=== PATIENT | male | born 1980 | race Caucasian/White ===

== ENCOUNTER → 2016-11-07 | Outpatient (CLI) | payer OTHER ==
--- NOTE | 2016-11-07 12:23 | KCIC ---
PROCEDURE MRI right knee without contrast dated 11/07/2016. HISTORY Right knee pain and popping for 10 days. TECHNIQUE Routine multiplanar multisequence MR imaging performed. COMPARISON None. FINDINGS Bone marrow signal is homogeneous. No marrow edema. Mild tricompartmental hypertrophic changes. Articular cartilage is intact. No osteochondral defect. Small joint effusion. No significant popliteal cyst. No intra-articular loose body. Anterior cruciate and posterior cruciate ligaments are intact. Medial and lateral collateral complexes are intact. Iliotibial band, popliteus tendon and pes anserine complex within normal limits. Quadriceps and patellar tendon are intact. No abnormality of the medial or lateral retinaculum. There are some prominent venous varicosities over the anterior medial patella. There is a focal radial tear at the medial meniscal root. Globular increased signal at the medial meniscal body without articular surface component. The anterior horn is intact. Lateral meniscus normal in morphology and signal. IMPRESSION - Radial tear at the medial meniscal root. - Mild tricompartmental degenerative arthrosis. - Small joint effusion. Electronically signed by: Lalito Steele (Nov 07, 2016 12:21:25)
== END | disposition home or self-care (01) ==
LOC: KCIC MRI 11:10
PROVIDERS: ATTEND Nurse Practitioner Gerontology
DX: S83.241A Other tear of medial meniscus, current injury, right knee, initial encounter (principal); M17.11 Unilateral primary osteoarthritis, right knee; M25.461 Effusion, right knee; I83.91 Asymptomatic varicose veins of right lower extremity; X58.XXXA Exposure to other specified factors, initial encounter; Y93.89 Activity, other specified; Y92.89 Other specified places as the place of occurrence of the external cause; Y99.8 Other external cause status
CPT/HCPCS: 73721

== ENCOUNTER 2016-11-28 06:40 | Day surgery (SDC) | payer OTHER ==
[~2016-11-28] VITALS: Ht 190.5 cm; Wt 112.0 kg
[~2016-11-28 06:40] MED LIST: BUPIVACAINE MPF 0.5% 30 ML VIAL. ONE; EPINEPHrine VIAL 30 MG/30 ML VIAL ONE; LIDOCAINE 1% 20 ML VIAL. ONE; MULT1TAB52 PO; NAPR500T3 PO
[2016-11-28] MEDS ORDERED: IV RINGERS,LACTATED 1000ML 1,000 ML IV SCH (07:00)
[2016-11-28] MEDS ORDERED: MORPHINE SULFATE 2 MG/ML DISP.SYRIN. IV PRN (07:00)
[2016-11-28] MEDS ORDERED: fentaNYL PF VIAL 100 MCG/2 ML VIAL IV PRN (07:00)
[2016-11-28] MEDS ORDERED: LIDOCAINE 1% 1 ML SYRINGE. ID PRN (07:00)
[2016-11-28] MEDS ORDERED: HYDROmorphone 2 MG/ML VIAL IV PRN (07:00)
[2016-11-28] MEDS ORDERED: ONDANSETRON PF 4 MG/2 ML VIAL. IV PRN (07:00)
[2016-11-28] MEDS ORDERED: PROCHLORPERAZINE 10 MG/2 ML VIAL. IV PRN (07:00)
[2016-11-28] MEDS ORDERED: LIDOCAINE 2% 100 MG/5 ML SYRINGE. ONE (07:14)
[2016-11-28] MEDS ORDERED: DEXAMETHASONE SOD PHOS 20 MG/5 ML VIAL. ONE (07:14)
[2016-11-28] MEDS ORDERED: ONDANSETRON PF 4 MG/2 ML VIAL. ONE (07:14)
[2016-11-28] MEDS ORDERED: FAMOTIDINE 20 MG/2 ML VIAL ONE (07:14)
[2016-11-28] MEDS ORDERED: PROPOFOL 20 ML IV ONE (07:14)
[2016-11-28] MEDS ORDERED: MIDAZOLAM HCL/PF 2 MG/2 ML VIAL. ONE (07:16)
[2016-11-28] MEDS ORDERED: fentaNYL PF VIAL 100 MCG/2 ML VIAL ONE (07:16)
[2016-11-28] MEDS ORDERED: KETOROLAC 60 MG/2 ML INJ FOR OR. ONE (07:17)
--- NOTE | 2016-11-28 07:35 | DISCH ---
DISCHARGE INSTRUCTIONS Condition on Discharge Condition on Discharge: Stable Activity After Discharge Activity Instructions for Disc: Other, see below Other activity instructions: remain in brace, except for showering. Weight Bearing Status after Di: Non weight bearing Diet after Discharge Diet after Discharge: Regular Wound Incision Care Wound/Incision Care: Ice to area for comfort, Keep wound/cast CDI, Change dressing Contacting the DRFan after DC Call your doctor for: Concerns you may have Follow-Up Follow up with: Micki or Boyd in 2wks Treatment/Equipment after DC Adaptive Equipment Issued: None AMDDI KITCHEN II, MD November 28, 2016 07:35
--- NOTE | 2016-11-28 07:36 | PDOC ---
BRIEF OPERATIVE NOTE Date: November 28, 2016 Pre-Op Diagnosis R medial meniscal root tear Post-Op Diagnosis same, cartilage flap MFC Procedure Performed R knee arthroscopic debridement of meniscus root, chrondroplasty Surgeon Boyd Castillo Anesthesia Type: General Blood Loss 10mL Complications none MADDI KITCHEN II, MD November 28, 2016 07:36
[2016-11-28] MEDS ORDERED: ePHEDrine PF IN SALINE 50 MG/5 ML DISP.SYRIN IV ONE (07:57)
[2016-11-28] MEDS ORDERED: GLYCOPYRROLATE 1 MG/5 ML VIAL. ONE (08:06)
--- NOTE | 2016-11-28 09:06 | ACF ---
Admission Forms Criteria AMBULATORY SURGERY EXCEPTION CRITERIA Ambulatory Surgery Exception Criteria ( Place 'X' for any and all applicable criteria): Surgery or procedure performed on ambulatory basis may require inpatient stay for[A] ANY ONE of the following(1)(2)(3)(4)(5)(6)(7)(8)(9): [] I. A preoperative situation, condition, or finding that warrants inpatient stay as indicated by ANY ONE of the following: [] a) Inpatient care needed because of severity of a disease or condition rather than the surgery (eg, severe cardiac or respiratory disease, severe infection) (15) (16 ) (17) (18) [] b) Emergent procedure (eg, angioplasty for acute ischemia)(19) [] c) Complex surgical approach or situation as indicated by ANY ONE of the following(3): [] i) Open approach needed instead of usual endoscopic, transcatheter, or other less invasive procedure [] ii) Difficult approach because of previous operation [] iii) Airway monitoring required after open neck procedures(20)(21 ) [] iv) Large mass requiring unusually extensive dissection [] v) Additional complicating feature requiring inpatient care (eg , drain management)(22(23): [] d) Major surgery in a pt with high anesthetic risk as indicated by ANY ONE of the following (2)(3)(5)(7)(8): [] i) ASA risk class III or higher (severe systemic disease impairing function) [D] [] ii) Advanced age (eg, older than 85 years)(14)(24) [] iii) Symptomatic heart failure(25) [] iv) Symptomatic asthma or COPD(8)(21) [] v) Morbid obesity with hemodynamic or respiratory problems(20)( 21)(26)(27) [] vi) Obstructive sleep apnea(20)(21) [] vii) Former premature infants who are younger than 60 weeks [] viii) High risk for severe postoperative abnormalities (eg, severe postoperative hypocalcemia after parathyroidectomy for severe hyperparathyroidism)(27)( 28) [] ix) Unstable angina(25) [] e) Drug-related risk requiring inpatient stay as indicated by ANY ONE of the following(5)(10)(14)(32)(33) [] i) Procedure requires discontinuing drugs or other therapy (eg , antiarrhythmic medication, antiseizure medication), which necessitates inpatient observation or treatment.(18)(31) [] ii) Major surgery and high risk drug use as indicated by ANY ONE of the following: [] 1) Active abuse of cocaine or similar drug [] 2) Monoamine oxidase inhibitor use [] 3) Other drug identified as posing risk [] f) Inadequate outpatient care situation as indicated by ANY ONE of the following(5)(10)(14)(32)(33) [] i) Patient lives remote from medical facility and procedure has urgent complication potential, and temporary nearby residence cannot be arranged [] ii) Patient will have postprocedure incapacitation and inadequate assistance at home, or alternative level of care cannot be arranged. [] iii) Patient will have long general anesthesia or procedure side effect resolution time, and competent person to stay with patient on first postoperative night at home or alternative level of care cannot be arranged. [] iv) Other inadequate outpatient situation that cannot be handled by other means [X] II. A perioperative event, condition, or finding that warrants inpatient stay as indicated by ANY ONE of the following (1)(2)(3): [] a) Inadequate physiologic recovery: cardiovascular, respiratory, or hemodynamic status not normal or near preoperative baseline(18) [] b) Hemodynamic instability [] c) Patient not alert with near normal or baseline mental status [] d) Temperature not normal or as expected and not appropriate for outpatient treatment of condition [] e) Ambulatory or appropriate activity level status not yet achieved post procedure [E](34)(35)(36) [] f) Operative site not appropriate (eg, unexpected or excessive drainage or bleeding) [X] g) Postoperative effects not resolved or adequately managed (eg, significant pain or vomiting not appropriate for outpatient or next level of care)(10)(12) [] h) Complicating features requiring inpatient care as indicated by ANY ONE of the following(37): [] i) Severe complications of procedure (eg, bowel injury, airway compromise, vascular injury,severe hemorrhage) [] ii) Extensive (eg, dissection far beyond usual scope of procedure ) or prolonged (eg, 120 minutes beyond usual) surgery needed requiring inpatient postoperative care [] iii) Conversion to an open or complex procedure that requires inpatient care (eg, open vs laparoscopic cholecystectomy, abdominal vs vaginal hysterectomy)(38) [] iv) Comorbid condition or test result identified during or post procedure that requires inpatient care (7) [] v) Malignant hyperthermia(30) [] vi) Other complicating feature requiring inpatient care(22)(23) Inpatient stay may be needed until ALL of the following are present (1)(2)(3)(4) (5)(6)(10)(14)(33)(40): []a) Physiologic recovery: cardiovascular, respiratory, and hemodynamic status normal or near preoperative baseline []b) Hemodynamic stability []c) Patient alert, with near normal or baseline mental status []d) Temperature appropriate: patient afebrile or temperature appropriate for outpt treatment of condition []e) Activity level appropriate: ambulatory or appropriate activity level post procedure []f) Operative site appropriate as indicated by ALL of the following: []i) Site dry or with expected drainage []ii) Any blood noted is as expected for procedure. []g) Postoperative effects resolved or managed as indicated by ALL of the following: []i) Pain management appropriate for outpatient (or next level of) care(10) []ii) Minimal nausea and vomiting: if present, successfully treated with oral medication(12) []iii) Headache, dizziness, or drowsiness (if present) are mild. []h) Voiding status acceptable as indicated by ANY ONE of the following: []i) Voiding spontaneously []ii) No voiding but instructions given for follow-up in 6 to 8 hours []iii) Urinary catheter in place, and instructions given for follow-up []i) Complicating features requiring inpatient care manageable at a lower level of care(37) []j) Comorbid conditions manageable at a lower level of care(37) The original [employer] content created by [employer] has been revised. The portions of the content which have been revised are identified through the use of italic text or in bold, and [facility] has neither reviewed nor approved the modified material. All other unmodified content is copyright [employer]. Please see references footnoted in the original [facility] edition 2016 Admission Criteria Met?: Yes SIOMARA MENDOZA November 28, 2016 09:05 MADDI KITCHEN II, MD November 29, 2016 14:03
[2016-11-28] MEDS: fentaNYL PF VIAL 100 MCG/2 ML VIAL IV PRN ×4 (09:24→10:12)
[2016-11-28] MEDS ORDERED: OXYCODONE/APAP 5/325 TABLET. PO ONE (09:30)
[2016-11-28] MEDS ORDERED: OXYC-323 PO (09:30)
[2016-11-28] MEDS ORDERED: DOCU-27 PO (09:31)
[2016-11-28] MEDS ORDERED: ONDA4TAB10 SL (09:31)
[2016-11-28 11:15] VITALS: BP 133/68
--- NOTE | 2016-11-28 11:59 | OP ---
DATE OF SURGERY: 11/28/2016 SURGEON: Manjit Kitchen M.D. BARN AND PROPERTY MANAGER: Fili Castillo. ANESTHESIA: General. PREOPERATIVE DIAGNOSIS: 1. Right knee medial meniscal tear. POSTOPERATIVE DIAGNOSES: 1. Right knee partial medial meniscal tear. 2. Partial thickness cartilage lesion measuring 3 x 8 mm at the medial femoral condyle at about 45 of flexion with loose cartilage flaps. PROCEDURES PERFORMED: 1. Arthroscopic medial meniscal root debridement. 2. Arthroscopic chondroplasty. FINDINGS: 1. The patient had grade 2-3 changes at his trochlea. 2. Intact patellar cartilage. 3. He had the medial meniscal lesion as noted above. 4. Intact medial tibial plateau cartilage. 5. Intact cruciate ligaments. 6. Lateral compartments showed fissures and grade 2-3 changes at the tibial plateau without any lesions at the lateral femoral condyle. 7. Lateral meniscus was without pathology and stable to probing. REASON FOR PROCEDURE: The patient is a very pleasant gentleman who presented to my nurse practitioner with complaints of painful catching and medial knee pain, worse with activity and twisting. We had obtained an MRI, which revealed the meniscal root pathology and because of his age and the MRI findings, I have recommended we proceed with surgery likely in the form of a meniscus repair. I discussed the rehab and risks, benefits, alternatives with him and he elected to proceed. DESCRIPTION OF PROCEDURE: The patient was greeted in the preoperative area by myself. Correct extremity was marked and verified. He was taken to the operative suite and antibiotics were started en route. Once in the OR, he was transferred gently supine to the OR bed and secured to the bed after successful induction of general anesthesia using an LMA. We then placed a nonsterile tourniquet to his right thigh. We then attached our bump under the hip and the foot plate to maintain his knee at 90 degrees. We then proceeded to prep and drape right lower extremity in our usual sterile fashion and I conducted a standard preoperative timeout. I then palpated, marked surface anatomy and made garcia for my anterolateral portal, anteromedial portal and for a medial open incision as well. After this, the extremity was exsanguinated and tourniquet insufflated to 300 mmHg. I then created my anterolateral portal in the usual fashion. I then introduced blunt arthroscopic trocar in suprapatellar pouch and conducted my diagnostic arthroscopy with the above-noted findings. I then used a spinal needle localizing the anteromedial portal and incised skin in accordance with this. I then inserted the probe and continued on with my diagnostic arthroscopy. I then addressed his cartilage lesion and with the loose flaps were carefully debrided with the shaver to stable edges. This was a partial-thickness lesion. He still had a layer of intact cartilage underneath the flap. I then directed my attention to the meniscus root and was having difficulty fully visualizing and appreciating it and therefore, replaced my scope in the anteromedial portal and then introduced the blunt arthroscopic trocar and advanced this in to the posterior aspect of the knee. I then inserted the 70 degree camera to visualize the posterior aspect of the knee and noted no meniscal capsular injury. I inspected its return and it was approximately 30% of his meniscus root attachment. I then used the spinal needle to localize posteromedial portal and incised skin in accordance with this and then, I followed this with the switching stick and dilated the hole. I then inserted my probe and continued on inspecting the tear and still felt there was about 30%. I made the decision that the repair would not offer in many real benefit and used combination of mainly arthroscopic biter, but a little shaver to debride the small loose flap of this tear. After trimming the posterior meniscus root back to stable edges and I then took my final pictures and withdrew the camera from the posterior aspect of the knee and reinserted into the suprapatellar pouch. I then performed repeat aspiration maneuvers while my assistant professor of business palpated vigorously behind the knee to ensure I had removed all loose debris. I then removed all excess arthroscopic fluid and the arthroscopic instrumentation. I then injected local anesthetic mixture into the sarah-incisional areas. We then cleansed and dried his leg and closed the skin with simple interrupted 2-0 nylon. A Xeroform sterile dressing, sterile cast padding, and John wrap were then applied to the patient's knee. Postop plan is to discharge him weightbearing as tolerated. We will have him follow up with myself and my nurse practitioner in 2 weeks, sooner should problems arise. MANJIT KITCHEN MD DR: CHRIS/presley JOB#: [id number] / [id number] MTDD
== END 2016-11-28 11:25 | disposition home or self-care (01) ==
LOC: SURG 06:40
PROVIDERS: ATTEND Orthopaedic Surgery Sports Medicine
DX: S83.241A Other tear of medial meniscus, current injury, right knee, initial encounter (principal); M94.8X6 Other specified disorders of cartilage, lower leg; X58.XXXA Exposure to other specified factors, initial encounter; Y93.9 Activity, unspecified; Y92.9 Unspecified place or not applicable; Y99.9 Unspecified external cause status; Z72.89 Other problems related to lifestyle; Z72.0 Tobacco use
CPT/HCPCS: 29882; J0171; J0690; J1100; J1885; J2250; J2405; J2704; J3010; J3490; S0028; C1782; J7120

== ENCOUNTER → 2017-01-05 | Outpatient (CLI) | payer OTHER ==
[~2017-01-05] MED LIST changes: -BUPIVACAINE MPF 0.5% 30 ML VIAL. ONE; +DOCU-27 PO; -EPINEPHrine VIAL 30 MG/30 ML VIAL ONE; -LIDOCAINE 1% 20 ML VIAL. ONE; +ONDA4TAB10 SL; +OXYC-323 PO
--- NOTE | 2017-01-06 10:24 | RAD ---
APPROVED REPORT Patient Location : OUT-PATIENT Indications Lower Extremity Pain : Bilateral Stasis Disease Lower Extremity Edema : Bilateral Restless Leg Varicose Veins Skin Changes Deep System Deep Venous Thrombosis present : No Deep Venous Reflux present : No Greater Saphenous Veins (GSV) Significant venous relux noted in the LEFT GSV at the following levels : Superficial Femoral Junction Accessory Veins Right Anterior Accessory Vein : Present : Yes Reflux : No Leftt Anterior Accessory Vein : Present : Yes Reflux : No Perforators Thigh Perforators Left: cm up from knee crease 25cm back from the anterior border of femur 17 diameter mm. Calf Perforators Right: cm up from medial heel 20cm back from the anterior border of tibia 10 diameter mm. Left: cm up from medial heel 10cm back from the anterior border of tibia 10 diameter mm. Findings On grayscale images of the right great saphenous vein there is no evidence of thrombus on limited harjinder ging. There is no evidence of reflux. The right great saphenous vein measures approximately 8.8 mm. T here is anterior accessory saphenous vein present and there is no evidence of reflux. The right lesse r saphenous vein also demonstrates no evidence of reflux. The left great saphenous vein measures 7.2 mm and shows reflux of greater than 2 seconds throughout i ts course. The left lesser saphenous vein does not demonstrate any evidence of reflux. There are multiple calf perforators noted on the left side as follows: 10 cm up and 10 cm back 26 7 m up in 7 cm back 33 7 m up and 10 cm back 40 cm up and Leven 7 m back 48 cm up and 12 some years back. 1 thigh perforators noted at 75 cm up and 17 cm back. There are 2 small right sided calf perforators noted at approximately 27 m up and 10 7 m back. Critical Notification Critical Value: No <Conclusion> 1. Positive for reflux in the left great saphenous vein with multiple left-sided perforators extendin g from the thigh to the calf. 2. Negative for reflux in the right lower extremity with isolated calf perforators as described above .
--- NOTE | 2017-01-06 11:27 | RAD ---
APPROVED REPORT Bilateral Lower Extremity Venous Study for DVT Patient Location: OUT-PATIENT Indications Lower Extremity Pain: Bilateral Varicose Veins Stasis Disease Risk Factors Trauma Post OP Smoking Findings Rose scale images of the bilateral lower extremity deep venous structures were performed to rule out thrombus. Bilaterally from the common femoral vein to the popliteal vein they are compressible. Spectral wavefo juanita and color Doppler do not show any evidence of thrombus. The below-knee veins are not well visualized but there is spontaneous flow noted. Critical Notification Critical Value: No <Conclusion> Negative for DVT in the bilateral lower extremity deep venous structures.
== END | disposition home or self-care (01) ==
LOC: US 08:36
PROVIDERS: ATTEND Internal Medicine Cardiovascular Disease
DX: I87.2 Venous insufficiency (chronic) (peripheral) (principal); R60.0 Localized edema
CPT/HCPCS: 93970

== ENCOUNTER → 2017-04-18 | Outpatient (CLI) | payer OTHER ==
[~2017-04-18] MED LIST changes: +DOCU-109 PO; -DOCU-27 PO; +LIDOCAINE 1%/EPI 1:100,000 50 ML, SODIUM BICARBONATE VIAL 5 MEQ in IV NORMAL SALINE 100... SQ ONE
--- NOTE | 2017-04-18 14:01 | CARD ---
APPROVED REPORT Patient StatusOUT-PATIENT Set Up Mechanic [employer] Machine: CLARISA CUTLER Procedure(s) performed: Endovenous radiofrequency ablation of the left greater saphenous vein. INDICATION FOR PROCEDURE The indication(s) include : Symptomatic Chronic Venous Insufficiency with Varicose Veins, lower extre mity pain and edema. PROCEDURE NARRATIVE The patient was transferred to the procedure suite and the insufficient saphenous vein was mapped by ultrasound and diagrammed on the underlying skin. The depth and diameter of the vein(s) to be treate d was documented. The varicose tributary veins and suitable access sites were identified and mapped as well. The patient was then positioned supine on the procedure table. The entire limb was sterile ly prepared and the lower extremity and treatment table were sterilely draped. The RF catheter was placed on the sterile field, flushed and wiped down, prepared, and connected by a sterile cable. The patient was placed in reverse-Trendelenburg position and local anesthesia was instilled in the sk in overlying the access site. A skin incision was made overlying the identified and mapped greater s aphenous vein entry site. The vein was punctured through the incision and using ultrasound guidance and the Seldinger technique a guide wire was introduced through the needle which was then exchanged o ted the guide wire for a 7 F sheath. The guide wire was removed and the sheath was flushed. The RF probe was placed into the vein through the sheath and positioned at a point just distal (about 0.5 to 1 cm) to the entrance point of the superficial epigastric artery using ultrasound guidance. After the RF probe position was verified by the ultrasound, tumescent anesthesia was infiltrated, und er ultrasound guidance, precisely into the perivenuus compartment along the entire length of vein fro m the entry site to the saphenofemoral junction until a "halo" of fluid was noted around the vein. The patient was then placed in Trendelenburg position. After the RF probe position was again confirm ed with ultrasound imaging, moderate external compression was applied over the RF heating element, an d RF energy was applied. The probe was withdrawn sequentially in 6.5 cm steps with slight overlap of 7 cm segments of ablation and monitored to keep the probe temperature at 120 degrees Celsius and the generator output well below its maximum power. Treatment Segments: 14 Total Length: 65 cm. Tot al Ablation time: 4 minutes 40 seconds. Repeat ultrasound of the saphenous vein was performed confirming successful treatment. The catheter and sheath were withdrawn and hemostasis established with direct pressure. After assuring hemostasis , the skin incision over the saphenous vein was closed with a bandage and an external compression brandon ssing was applied from the level of the foot to the most proximal level of the thigh.
== END | disposition home or self-care (01) ==
LOC: VNUS 12:28
PROVIDERS: ATTEND Internal Medicine Cardiovascular Disease
DX: I83.12 Varicose veins of left lower extremity with inflammation (principal); Z72.0 Tobacco use; Z87.39 Personal history of other diseases of the musculoskeletal system and connective tissue; Z72.89 Other problems related to lifestyle; F17.200 Nicotine dependence, unspecified, uncomplicated
CPT/HCPCS: 36475; J3490; J7030

== ENCOUNTER → 2017-04-20 | Outpatient (CLI) | payer OTHER ==
[~2017-04-20] MED LIST changes: -LIDOCAINE 1%/EPI 1:100,000 50 ML, SODIUM BICARBONATE VIAL 5 MEQ in IV NORMAL SALINE 100... SQ ONE
--- NOTE | 2017-04-20 16:04 | RAD ---
Left lower extremity venous ultrasound, 04/20/2017: History: follow-up greater saphenous vein ablation : Duplex evaluation including grayscale, color flow and spectral Doppler analysis was performed. The femoral and popliteal veins show no filling defects to suggest DVT. The visualized calf veins are unremarkable. Limited views of the greater saphenous vein demonstrate occlusion compatible with the history of an ablation procedure. IMPRESSION: There is no sonographic evidence of deep vein thrombosis in the left lower extremity
== END | disposition home or self-care (01) ==
LOC: US 10:40
PROVIDERS: ATTEND Internal Medicine Cardiovascular Disease
DX: Z98.890 Other specified postprocedural states (principal)
CPT/HCPCS: 93971